=== PATIENT | female | born 1970 | race African-American/Black ===

== ENCOUNTER 2019-04-07 21:04 | Emergency (ER) | payer MEDICAID ==
[~2019-04-07] VITALS: Ht 157.5 cm; Wt 53.0 kg
[2019-04-07] MEDS ORDERED: LORAZEPAM 2MG/ML CPJ IM STA (21:37)
[2019-04-07] MEDS ORDERED: SODIUM CHLORIDE 0.9% 1,000 ML IV ONE (21:37)
[2019-04-07] MEDS ORDERED: OLANZAPINE 10 MG/VIAL IM ONE (21:45)
[2019-04-07 23:17] LABS: BASOPHILS % 0.3 % (0.0-2.0); EOSINOPHILS % 0.8 % (0.0-5.0); HEMATOCRIT. 38.1 % (36.0-48.0); HEMOGLOBIN. 13.1 g/dL (12.0-16.0); LYMPHOCYTES % 14.7 % (20.0-50.0); MEAN CORPUSCULAR HEMOGLOBIN 34.6 pg (28.0-32.0); MEAN CORPUSCULAR VOLUME 100.5 fL (81.0-99.0); MEAN PLATELET VOLUME 7.8 fl (7.4-10.4); MONOCYTES % 5.1 % (2.0-8.0); NEUTROPHILS % 79.1 % (40.0-76.0); PLATELET 282 x1000/uL (130-400); RED CELL DISTRIBUTION WIDTH 13.5 % (11.6-14.6)
[2019-04-07 23:21] LABS: HCG SCREEN NEGATIVE
[2019-04-07 23:22] LABS: CHLORIDE 106 mEq/L (98-107)
[2019-04-07 23:26] LABS: ETHANOL BLOOD < 10 mg/dL
[2019-04-07 23:30] LABS: CREATINE KINASE 476 IU/L (26-192)
[2019-04-07 23:33] LABS: CREATINE KINASE MB FRACTION 7.4 ng/mL (0.5-3.6)
[2019-04-08 00:21] LABS: CLARITY URINE CLEAR (CLEAR); COLOR URINE YELLOW (YELLOW); KETONES URINE NEGATIVE (NEGATIVE); LEUKOCYTE ESTERASE URINE NEGATIVE (NEGATIVE); NITRITE URINE NEGATIVE (NEGATIVE); OCCULT BLOOD URINE 2+ (NEGATIVE); PROTEIN URINE 1+ (NEGATIVE); SPECIFIC GRAVITY URINE 1.023 (1.005-1.030)
[2019-04-08 00:31] LABS: *AMPHETAMINES SCREEN URINE NEGATIVE (NEGATIVE); *BARBITURATES SCREEN URINE NEGATIVE (NEGATIVE); *BENZODIAZEPINES SCREEN URINE NEGATIVE (NEGATIVE); METHADONE URINE SCREEN NEGATIVE (NEGATIVE)
[2019-04-08 00:32] LABS: OPIATES URINE SCREEN NEGATIVE (NEGATIVE); PHENCYCLIDINE URINE SCREEN NEGATIVE (NEGATIVE)
[2019-04-08 00:34] LABS: *COCAINE SCREEN URINE PRESUMTIVE POSITIVE (NEGATIVE); CANNABINOID URINE SCREEN PRESUMTIVE POSITIVE (NEGATIVE)
[2019-04-08 11:50] VITALS: BP 128/84
== END 2019-04-08 11:50 | disposition home or self-care (01) ==
LOC: ER 21:04
DX: R41.82 Altered mental status, unspecified (principal); T50.905A Adverse effect of unspecified drugs, medicaments and biological substances, initial encounter; R53.1 Weakness; Z59.0 Homelessness; Y92.89 Other specified places as the place of occurrence of the external cause
CPT/HCPCS: 36415; 80053; 80305; 80307; 80320; 80329; 81003; 82550; 82553; 83690; 84443; 84703; 85025; 93005; 96360; 96361; 96372; 99284; J3490; J7030; G0480

== ENCOUNTER 2019-05-14 18:57 | Emergency (ER) | payer MEDICAID ==
[~2019-05-14] VITALS: Ht 162.6 cm; Wt 50.0 kg
[2019-05-14 19:11] VITALS: BP 114/68
== END 2019-05-14 19:51 | disposition left against medical advice (07) ==
LOC: ER 18:57
DX: Z53.21 Procedure and treatment not carried out due to patient leaving prior to being seen by health care provider (principal)

== ENCOUNTER 2025-04-10 11:16 | Emergency (ER) | payer MEDICAID, OTHER ==
[~2025-04-10] VITALS: Ht 165.1 cm; Wt 50.0 kg
[2025-04-10 11:19] VITALS: BP 119/78; PULSE 80; RESP 18; TEMP 36.8; O2SAT 99
[2025-04-10] MEDS: IBUPROFEN 600MG TABLET PO ONE (12:14)
[2025-04-10] MEDS ORDERED: ACET-3800 MT (12:31)
[2025-04-10] MEDS ORDERED: IBUP-1455 MT (12:31)
[2025-04-10] MEDS: HYDROCODONE/ACETAMINOPHEN 5/325MG TABLET PO ONE (12:58)
== END 2025-04-10 14:09 | disposition home or self-care (01) ==
LOC: ER 11:16
DX: M84.375A Stress fracture, left foot, initial encounter for fracture (principal); Z86.73 Personal history of transient ischemic attack (TIA), and cerebral infarction without residual deficits; X58.XXXA Exposure to other specified factors, initial encounter; Y93.89 Activity, other specified; Y92.89 Other specified places as the place of occurrence of the external cause; Y99.8 Other external cause status
CPT/HCPCS: 29515; 73610; 73630; 99284